=== PATIENT | male | born 1940 | race Caucasian/White ===

== ENCOUNTER 2016-08-01 09:33 | Inpatient (IN) | payer MEDICARE, OTHER ==
[~2016-08-01] VITALS: Ht 172.7 cm; Wt 110.9 kg
--- NOTE | 2016-08-01 09:45 | NUR ---
DR GUEVARA AT THE BEDSIDE FOR EVAL AND EXAM.
[2016-08-01] MEDS ORDERED: IV NORMAL SALINE 1000 ML BAG IV ONE (10:00)
[2016-08-01] MEDS ORDERED: LISI-607 PO (10:07)
[2016-08-01] MEDS ORDERED: RANO10003 PO (10:07)
[2016-08-01] MEDS ORDERED: TAMS0.4C34 PO (10:07)
[2016-08-01] MEDS ORDERED: PANT40TA4 PO (10:07)
[2016-08-01] MEDS ORDERED: AMLO2.5T PO (10:07)
[2016-08-01] MEDS ORDERED: ATOR80TA PO (10:07)
[2016-08-01] MEDS ORDERED: FINA5TAB3 PO (10:07)
[2016-08-01] MEDS ORDERED: EXEN5PEN2 SQ (10:07)
[2016-08-01] MEDS ORDERED: HYDR-548 PO (10:07)
[2016-08-01] MEDS ORDERED: CLOP75TA2 PO (10:07)
[2016-08-01 10:09] LABS: BASOPHILS % (AUTO) 0.5 % (0.0-2.0); EOSINOPHILS # (AUTO) 0.1 K/uL (0.0-0.7); HEMATOCRIT 38.9 % (36.7-47.1); HEMOGLOBIN 13.1 g/dL (12.5-16.3); LYMPHOCYTES # (AUTO) 0.9 K/uL (20.0-40.0); LYMPHOCYTES % (AUTO) 17.4 % (20.5-51.5); MEAN CORPUSCULAR HEMOGLOBIN 32.3 uug (23.8-33.4); MEAN CORPUSCULAR HGB CONC 34 g/dL (32.5-36.3); MEAN CORPUSCULAR VOLUME 95.5 fL (73.0-96.2); MONOCYTES # (AUTO) 0.4 K/uL (2.0-10.0); MONOCYTES % (AUTO) 8.9 % (0.0-11.0); NEUTROPHILS # (AUTO) 3.6 K/uL (1.8-8.9); NEUTROPHILS % (AUTO) 72.2 % (38.5-71.5); PLATELET COUNT (AUTO) 179 K/uL (152-348); RED BLOOD CELL COUNT(AUTO) 4.07 MIL/uL (4.06-5.63); RED CELL DISTRIBUTION WIDTH 13.4 % (12.1-16.2)
[2016-08-01 10:23] LABS: CALCIUM 8.9 mg/dL (8.5-10.1); POTASSIUM 4.9 mmol/L (3.5-5.1)
[2016-08-01 10:24] LABS: CREATININE 1.5 mg/dL (0.6-1.3)
[2016-08-01 10:29] LABS: ALBUMIN 3.4 g/dL (3.4-5.0); BILIRUBIN,DIRECT 0.1 mg/dL (0.0-0.2); BILIRUBIN,TOTAL 0.6 mg/dL (0.2-1.0); TOTAL PROTEIN, SERUM 6.6 g/dL (6.4-8.2)
[2016-08-01 10:31] LABS: LACTIC ACID 1.9 mmol/L (0.4-2.0); TROPONIN I < 0.017 ng/mL (0.00-0.056)
[2016-08-01] MEDS ORDERED: BYETTA SQ (11:10)
--- NOTE | 2016-08-01 11:16 | NUR ---
PT NOT CANDIDATE FOR MRSA, BELONGING LIST COMPLETED. PT'S MEDICATION BOTTLES SENT TO RX.
[2016-08-01] MEDS ORDERED: MORPHINE SULFATE 2 MG/1 ML DISP.SYRIN IV PRN (11:45)
[2016-08-01] MEDS ORDERED: ONDANSETRON 4 MG/2 ML VIAL IV PRN (11:45)
[2016-08-01] MEDS ORDERED: INSULIN REGULAR, HUMAN 300 UNIT/3 ML VIAL SQ PRN (11:45)
[2016-08-01] MEDS ORDERED: DEXTROSE 50% 50 ML DISP.SYRIN IV PRN (11:45)
[2016-08-01] MEDS ORDERED: IV NS 1000 ML 1,000 ML IV PRN (11:45)
[2016-08-01] MEDS ORDERED: MAGNESIUM HYDROXIDE 30 ML LIQUID UDC PO PRN (11:45)
[2016-08-01] MEDS ORDERED: ACETAMINOPHEN 325 MG TABLET PO PRN (11:45)
[2016-08-01 12:00] VITALS: BP 121/75
--- NOTE | 2016-08-01 15:00 | NUR ---
Patient was brought from the ER in a gurney. No s/s of distress noted. Denied pain at the moment. Iv intact and patent on the left AC #20. Admission assessments were done and charted. Weakness on the left side, walk with a cane. Belongings were checked and charted. September significant order took his wallet and money home. Safety and comfort provided. Will continue monitoring.
[2016-08-01] MEDS ORDERED: BIMA2.5D5 EACHEYE (16:05)
[2016-08-01 16:45] VITALS: BP_SYST 116; BP_SYST 121; BP_SYST 122; BP_DIAS 68; BP_DIAS 73
[2016-08-01] MEDS: BLOOD SUGAR DIAGNOSTIC 1 EACH STRIP VI SCH ×2 (16:46→20:31)
[2016-08-01] MEDS: TAMSULOSIN HCL 0.4 MG CAP.SR.24H PO SCH (16:49)
--- NOTE | 2016-08-01 18:19 | NUR ---
September, significant order will be notified by patient, to bring glaucoma medications, Simbrinza and Lumigan. There were entered into the reconciliation meds. Orthostatic BP taken and charted. Patient now is resting and watching tv. No s/s of distress noted. C/O of headache during the afternoon. Medication was given for relief. Will continue monitoring.
[2016-08-01] MEDS ORDERED: BRIN8DRO OP (18:27)
--- NOTE | 2016-08-01 20:00 | NUR ---
PT RECEIVED IN BED AOX3 RESTING COMFORTABLY. PT IS PLEASANT UPON APPROACH. VITAL SIGNS WNL. IV FLUIDS RUNNING IN LEFT AC AT 60CC/HR INTACT AND PATENT. PT IS ON TELE MONITOR SINUS RHYTHM. NO ACUTE DISTRESS NOTED. BED IN LOW AND LOCKED POSITION, CALL LIGHT WITHIN REACH.
[2016-08-01 20:17] VITALS: BP 114/66
[2016-08-01] MEDS: RANOLAZINE 500 MG TAB.ER.12H PO SCH (20:26)
[2016-08-01] MEDS ORDERED: Medication Not On Formulary EA (Atorvastatin Calcium (Lipitor) 80 MG) PO SCH (21:00)
[2016-08-01] MEDS ORDERED: ATORVASTATIN 40 MG TABLET PO SCH (21:00)
--- NOTE | 2016-08-02 00:30 | NUR ---
PATIENT RESTING COMFORTABLY IN BED, OOB FOR BATHROOM PRIVILEGES. NO DISCOMFORT NOTED. SAFETY MEASURES MAINTAINED.
[2016-08-02 00:38] VITALS: BP 108/69
[2016-08-02 02:35] LABS: *BILIRUBIN,URIN NEGATIVE (NEGATIVE); *BLOOD, URINE NEGATIVE (NEGATIVE); *CLARITY,URINE CLEAR (CLEAR); *COLOR,URINE YELLOW (YELLOW); *KETONES,URINE NEGATIVE (NEGATIVE); *PROTEIN,URINE NEGATIVE (NEGATIVE); *UROBILINOGEN,URINE 0.2 E.U./dl (NORMAL); LEUKOCYTE ESTERASE ,URINE NEGATIVE (NEGATIVE); NITRITE, URINE NEGATIVE (NEGATIVE); UGLUCOSE NEGATIVE (NEGATIVE)
[2016-08-02 02:42] LABS: BACTERIA,URINE FEW /HPF (NONE SEEN); RBC,URINE NONE SEEN /HPF (0-3); SQUAMOUS EPITHELIAL CELL,UR FEW /HPF (NONE SEEN); WBC,URINE 0-3 /HPF (0-3)
[2016-08-02 02:46] LABS: *CREATININE,URINE 41.4 mg/dL (30-125); *SODIUM RNDM,URINE 88 mmol/L (40-220)
[2016-08-02 03:07] LABS: *URINE TOTAL PROTEIN RANDOM < 6.0 mg/dL (<150/24HR)
[2016-08-02 04:00] VITALS: BP 116/72
--- NOTE | 2016-08-02 04:44 | NUR ---
PT IN BED SLEEPING, NO ACUTE DISTRESS NOTED. REMAINS ON TELE MONITOR SINUS RHYTHM. WILL CONTINUE TO MONITOR FOR SAFETY.
[2016-08-02] MEDS: BLOOD SUGAR DIAGNOSTIC 1 EACH STRIP VI SCH ×2 (06:42→12:07)
[2016-08-02 06:47] LABS: BASOPHILS % (AUTO) 0.4 % (0.0-2.0); EOSINOPHILS # (AUTO) 0.1 K/uL (0.0-0.7); EOSINOPHILS % (AUTO) 1.5 % (0.0-7.0); HEMATOCRIT 38.2 % (36.7-47.1); HEMOGLOBIN 12.8 g/dL (12.5-16.3); LYMPHOCYTES # (AUTO) 0.9 K/uL (20.0-40.0); LYMPHOCYTES % (AUTO) 19.2 % (20.5-51.5); MEAN CORPUSCULAR HEMOGLOBIN 32.6 uug (23.8-33.4); MEAN CORPUSCULAR HGB CONC 34 g/dL (32.5-36.3); MEAN CORPUSCULAR VOLUME 97.1 fL (73.0-96.2); MONOCYTES # (AUTO) 0.4 K/uL (2.0-10.0); MONOCYTES % (AUTO) 9.1 % (0.0-11.0); NEUTROPHILS # (AUTO) 3.5 K/uL (1.8-8.9); NEUTROPHILS % (AUTO) 69.8 % (38.5-71.5); PLATELET COUNT (AUTO) 189 K/uL (152-348); RED BLOOD CELL COUNT(AUTO) 3.93 MIL/uL (4.06-5.63); RED CELL DISTRIBUTION WIDTH 13.5 % (12.1-16.2); WHITE BLOOD COUNT (AUTO) 4.9 K/uL (3.6-10.2)
--- NOTE | 2016-08-02 06:56 | NUR ---
PT SLEPT THROUGH OUT THE NIGHT. FINGERSTICK THIS MORNING WAS 139MG/DL. COMPLIANT WITH MEDICATIONS. NO ACUTE DISTRESS NOTED. WILL CONTINUE TO MONITOR FOR SAFETY.
[2016-08-02] MEDS ORDERED: PANTOPRAZOLE SODIUM 40 MG TABLET.DR PO SCH (07:00)
[2016-08-02 07:06] LABS: THYROID STIMULATING HORMONE 1.318 mIU/mL (0.358-3.740)
[2016-08-02 07:36] LABS: ALBUMIN 3.2 g/dL (3.4-5.0); BILIRUBIN,TOTAL 0.5 mg/dL (0.2-1.0); CALCIUM 8.3 mg/dL (8.5-10.1); MAGNESIUM 1.6 mg/dL (1.8-2.4); PHOSPHOROUS 3.9 mg/dL (2.5-4.9); POTASSIUM 4.3 mmol/L (3.5-5.1); TOTAL PROTEIN, SERUM 6.3 g/dL (6.4-8.2)
[2016-08-02 07:40] LABS: CREATININE 1.6 mg/dL (0.6-1.3)
[2016-08-02] MEDS: RANOLAZINE 500 MG TAB.ER.12H PO SCH (08:14)
[2016-08-02] MEDS: TAMSULOSIN HCL 0.4 MG CAP.SR.24H PO SCH (08:14)
--- NOTE | 2016-08-02 08:30 | NUR ---
awake alert cooperate well no pain or dizziness eat well breakfast on fall precaution bed alarm on and call kunz in reach
[2016-08-02] MEDS ORDERED: CLOPIDOGREL 75 MG TABLET PO SCH (09:00)
[2016-08-02] MEDS ORDERED: FINASTERIDE 5 MG TABLET PO SCH (09:00)
[2016-08-02] MEDS ORDERED: MAGNESIUM SULFATE/D5W 100 ML IV SCH (09:30)
--- NOTE | 2016-08-02 10:00 | NUR ---
MARIEL CORREA SEEN PATIENT AND LAB RESULT ORDER OK TO D/C HOME TODAY WITH LIST OF HOME MEDICINE D/C HOME INSTRUCTION GIVEN VERBALIZES UNDERSTAND AND REFUSED PHAMACY TO EXPLAINED HOME MEDICINE REMIND HIM TO STOP NORVASC ORDER
[2016-08-02 11:43] VITALS: BP 128/82
--- NOTE | 2016-08-02 12:50 | NUR ---
D/C HOME WITH HIS BELONGING ACCOMPANIES WITH FAMILY CONDITION STABLE NO SOB OR PAIN OR DIZZINESS
[2016-08-03 09:07] LABS: A/G RATIO 1.4 (0.7-1.7); ALBUMIN 3.4 g/dL (2.9-4.4); ALPHA-1-GLOBULIN 0.1 g/dL (0.0-0.4); ALPHA-2-GLOBULIN 0.7 g/dL (0.4-1.0); BETA GLOBULIN 0.7 g/dL (0.7-1.3); GAMMA GLOBULIN 0.9 g/dL (0.4-1.8); GLOBULIN, TOTAL 2.4 g/dL (2.2-3.9); M-SPIKE Not Observed g/dL (Not Observed)
[2016-08-03 15:12] LABS: PTH, INTACT 32 pg/mL (15-65)
== END 2016-08-02 12:55 | disposition home or self-care (01) | DRG 312 ==
LOC: ER 09:33 → TELE 10:59
PROVIDERS: ADMIT Internal Medicine; ATTEND Internal Medicine
DX: I95.1 Orthostatic hypotension (principal); N17.0 Acute kidney failure with tubular necrosis; E11.65 Type 2 diabetes mellitus with hyperglycemia; E78.5 Hyperlipidemia, unspecified; I25.10 Atherosclerotic heart disease of native coronary artery without angina pectoris; G89.29 Other chronic pain; N40.0 Benign prostatic hyperplasia without lower urinary tract symptoms; M19.90 Unspecified osteoarthritis, unspecified site; I10 Essential (primary) hypertension; M54.32 Sciatica, left side; M54.31 Sciatica, right side; M21.372 Foot drop, left foot; V89.2XXS Person injured in unspecified motor-vehicle accident, traffic, sequela; T46.4X5A Adverse effect of angiotensin-converting-enzyme inhibitors, initial encounter; Y92.009 Unspecified place in unspecified non-institutional (private) residence as the place of occurrence of the external cause; Z98.61 Coronary angioplasty status; I12.9 Hypertensive chronic kidney disease with stage 1 through stage 4 chronic kidney disease, or unspecified chronic kidney disease; N18.9 Chronic kidney disease, unspecified; L98.8 Other specified disorders of the skin and subcutaneous tissue
CPT/HCPCS: 36415; 70030-TC; 70450; 71010; 83605; 83735; 83970; 84100; 84155; 84156; 84165; 84300; 84443; 85025; 85730; 86850; 86900; 86901; 87040; 87086; 93005; 93307; 97001; A4663; J1815; J3475; J7030